=== PATIENT | male | born 1955 | race Caucasian/White ===

== ENCOUNTER 2019-03-01 09:13 | Day surgery (SDC) | payer BC ==
[~2019-03-01] VITALS: Ht 175.3 cm; Wt 94.4 kg
[~2019-03-01 09:13] MED LIST: lisinopril PO; meloxicam PO; vit D PO
[2019-03-01 10:09] VITALS: Ht 175.3 cm; Wt 94.4 kg
[2019-03-01 10:28] VITALS: BP 138/86; PULSE 58; RESP 20
--- NOTE | 2019-03-01 10:33 | PREAC ---
Date/Time of Note Date/Time of Note DATE: 03/01/19 TIME: 10:30 Anesthesia Eval and Record Evaluation Time Pre-Procedure Interview DATE: 03/01/19 TIME: 10:30 Age 64 Sex male NPO: 8 hrs Preoperative diagnosis Colon screening Planned procedure Colonoscopy Past Medical History Past Medical History: Includes Cardio: HTN Endo: Diabetes, Hypothyroid Surgery & Anesthesia Issues No known issue Meds Anticoagulation: Yes Beta Kain within 24 hr: Yes Meds reviewed: Yes Allergies Coded Allergies: No Known Allergy (Unverified , 03/01/19) Allergies Reviewed: Yes Labs/Studies Labs Reviewed: Reviewed by anesthesiologist test: N/A Studies: ECG Pre-procedure Exam Last vitals Vital Signs Date Temp Pulse Resp B/P (MAP) Pulse Ox O2 O2 Flow FiO2 Time Delivery Rate 03/01/19 97.1 58 20 138/86 99 Room Air 10:28 (103) Airway: Adequate mouth opening, Adequate thyromental dist Mallampati: Mallampati II Teeth: Normal Lung: Normal Heart: Normal ASA Physical Status ASA physical status: 3 Emergency: None Planned Anesthetic General/MAC: MAC Planned Pain Management Parenteral pain med Pre-operative Attestations Prior to commencing anesthesia and surgery, the patient was re-evaluated, there was verification of: *The patient's identity *The results of appropriate recent lab work and preoperative vital signs *The above evaluation not changing prior to induction *Anesthetic plan, risk benefits, alternative and complications discussed with patient/family; questions answered; patient/family understands, accepts and wishes to proceed. JAMES SANCHEZ MD Mar 01, 2019 10:33
[2019-03-01] MEDS ORDERED: PROPOFOL 60 ML ONE (10:34)
[2019-03-01] MEDS ORDERED: LIDOCAINE 2% (SDV) 5 ML INJ ONE (10:34)
--- NOTE | 2019-03-01 11:14 | PAC ---
Date/Time of Note Date/Time of Note DATE: 03/01/19 TIME: 11:13 Post-Anesthesia Notes Post-Anesthesia Note Last documented vital signs Vital Signs Date Temp Pulse Resp B/P (MAP) Pulse Ox O2 O2 Flow FiO2 Time Delivery Rate 03/01/19 97.1 58 20 138/86 99 Room Air 10:28 (103) Activity: WNL Respiratory function: WNL Cardiovascular function: WNL Mental status: Baseline Pain reasonably controlled: Yes Hydration appropriate: Yes Nausea/Vomiting absent: Yes Comments BP:112/67, P:78, Spo2:100%, T:98,9 JAMES SANCHEZ MD Mar 01, 2019 11:14
[2019-03-01 11:35] VITALS: BP 127/86; PULSE 64; RESP 16
== END 2019-03-01 11:53 | disposition home or self-care (01) ==
LOC: GIL 09:13
PROVIDERS: ATTEND Internal Medicine Gastroenterology
DX: Z12.11 Encounter for screening for malignant neoplasm of colon (principal); D12.8 Benign neoplasm of rectum; K64.8 Other hemorrhoids; K64.4 Residual hemorrhoidal skin tags; E11.9 Type 2 diabetes mellitus without complications; I10 Essential (primary) hypertension; E03.9 Hypothyroidism, unspecified
CPT/HCPCS: 45380; 88305; Z7610